=== PATIENT | male | born 1955 | race African-American/Black ===

== ENCOUNTER 2018-12-04 00:14 | Emergency (ER) | payer OTHER, MEDICAID ==
[~2018-12-04] VITALS: Ht 185.4 cm; Wt 90.7 kg
--- NOTE | 2018-12-04 00:21 | Emergency Room Report ---
History of Present Illness General Chief Complaint: Seizure Source: EMS Present Illness HPI [facility] as this patient had a witnessed seizure. It' s unknown whether he has a history of seizures in the past or what medications he is taking at this time. Also unknown whether he's abused drugs or alcohol. There is no head trauma during this. Last seizure was a year ago. Never started on medication. Patient is unable to answer questions as he is postictal. Further history will be obtained. Allergies: Coded Allergies: No Known Allergies (Unverified , 12/04/18) Patient History Limited by: medical condition Past Medical History: see triage record Past Surgical History: other - TA with R eye loss and L chest and back trauma Social History: Denies: smoking, alcohol use, drug use Social History Narrative [facility] Reviewed Nursing Documentation: PMH: Agreed; PSxH: Agreed Nursing Documentation-PMH Hx Neurological Problems: Yes - seizure Review of Systems All Other Systems: limited Physical Exam Vital Signs Date Time Temp Pulse Resp B/P (MAP) Pulse Ox O2 Delivery O2 Flow Rate FiO2 12/04/18 00:13 102 20 98 Room Air Sp02 EP Interpretation: reviewed, normal General Appearance: well appearing, no apparent distress, GCS 15 Head: normocephalic, other - prior trauma Eyes: right eye other - glass; left eye PERRL ENT: moist mucus membranes - no lingual trauma Neck: supple Respiratory: lungs clear, normal breath sounds Cardiovascular #1: regular rate, rhythm Cardiovascular #2: 2+ radial (R) Gastrointestinal: normal inspection, normal bowel sounds, non tender, no mass, non-distended Musculoskeletal: back normal, gait/station normal, normal range of motion Neurologic: alert, oriented x3 Skin: normal inspection, warm/dry Medical Decision Making Diagnostic Impression: Primary Impression: Seizure ER Course Patient presents post seizure. It's unknown whether he has a history of this. I differential includes new-onset seizure, breakthrough seizure, withdrawal seizure, electrolyte imbalance, brain bleed amongst others. Evaluation will be with EKG, chest x-ray, CT the head and labs. The patient will receive Keppra 500 mg IV and also Ativan 1 mg. The patient will also receive IV hydration. EKG no-injury. CXR with elevated R hemidiaphragm and atelectasis L. Labs unremarkable. Patient improved. Reports prior seizures without treatment. Denies cause for withdrawal. States has chronic pain in chest and lower back from trauma. Non focal neurologic exam. CT not indicated. But needs followup with PMD/ neurologist. Patient stable for outpatient observation and treatment. Laboratory Tests Test 12/04/18 00:25 12/04/18 00:35 White Blood Count 6.4 K/UL (4.8-10.8) Red Blood Count 4.90 M/UL (4.70-6.10) Hemoglobin 14.2 G/DL (14.2-18.0) Hematocrit 41.9 % (42.0-52.0) L Mean Corpuscular Volume 86 FL (80-99) Mean Corpuscular Hemoglobin 28.9 PG (27.0-31.0) Mean Corpuscular Hemoglobin Concent 33.8 G/DL (32.0-36.0) Red Cell Distribution Width 13.0 % (11.6-14.8) Platelet Count 192 K/UL (150-450) Mean Platelet Volume 6.1 FL (6.5-10.1) L Neutrophils (%) (Auto) 82.0 % (45.0-75.0) H Lymphocytes (%) (Auto) 9.2 % (20.0-45.0) L Monocytes (%) (Auto) 6.0 % (1.0-10.0) Eosinophils (%) (Auto) 1.3 % (0.0-3.0) Basophils (%) (Auto) 1.5 % (0.0-2.0) Sodium Level 142 MMOL/L (136-145) Potassium Level 4.7 MMOL/L (3.5-5.1) Chloride Level 104 MMOL/L (98-107) Carbon Dioxide Level 27 MMOL/L (21-32) Anion Gap 11 mmol/L (5-15) Blood Urea Nitrogen 16 mg/dL (7-18) Creatinine 1.2 MG/DL (0.55-1.30) Estimate Glomerular Filtration Rate > 60 mL/min (>60) Glucose Level 126 MG/DL (74-106) H Calcium Level 8.9 MG/DL (8.5-10.1) Total Bilirubin 0.5 MG/DL (0.2-1.0) Aspartate Amino Transferase (AST) 17 U/L (15-37) Alanine Aminotransferase (ALT) 18 U/L (12-78) Alkaline Phosphatase 55 U/L (46-116) Total Creatine Kinase 126 U/L (26-308) Troponin I 0.000 ng/mL (0.000-0.056) Total Protein 7.3 G/DL (6.4-8.2) Albumin 4.1 G/DL (3.4-5.0) Globulin 3.2 g/dL Albumin/Globulin Ratio 1.3 (1.0-2.7) Acetaminophen Level < 2 MCG/ML (10-30) L Phenytoin (Dilantin) Level < 0.5 ug/mL (10-20) L Valproic Acid Level < 3 MCG/ML (50-100) L Phenobarbital Level < 1.0 ug/mL (15-40) L Serum Alcohol < 3 mg/dL Urine Color Pale yellow Urine Appearance Clear Urine pH 5 (4.5-8.0) Urine Specific [place] 1.025 (1.005-1.035) Urine Protein 3+ (NEGATIVE) H Urine Glucose (UA) Negative (NEGATIVE) Urine Ketones 1+ (NEGATIVE) H Urine Blood 3+ (NEGATIVE) H Urine Nitrite Negative (NEGATIVE) Urine Bilirubin Negative (NEGATIVE) Urine Urobilinogen Normal MG/DL (0.0-1.0) Urine Leukocyte Esterase Negative (NEGATIVE) Urine RBC 10-15 /HPF (0 - 0) H Urine WBC 0-2 /HPF (0 - 0) Urine Squamous Epithelial Cells Occasional /LPF Urine Bacteria Occasional /HPF (NONE) Urine Mucus Moderate /LPF (NONE/OCC) H Urine Opiates Screen Negative (NEGATIVE) Urine Barbiturates Screen Negative (NEGATIVE) Phencyclidine (PCP) Screen Negative (NEGATIVE) Urine Amphetamines Screen Negative (NEGATIVE) Urine Benzodiazepines Screen Negative (NEGATIVE) Urine Cocaine Screen Negative (NEGATIVE) Urine Marijuana (THC) Screen Positive (NEGATIVE) H EKG Diagnostic Results Rate: normal Rhythm: NSR ST Segments: no acute changes Rhythm Strip Diag. Results EP Interpretation: yes Rhythm: NSR, no PVC's, no ectopy Chest X-Ray Diagnostic Results Chest X-Ray Diagnostic Results : Chest X-Ray Ordered: Yes # of Views/Limited/Complete: 1 View Indication: Other EP Interpretation: Yes Interpretation: no effusion, other - elevated L hemidiaphragm, atelectasis Impression: Other Electronically Signed by: Electronically signed by Marquis Vergara MD Last Vital Signs Date Time Temp Pulse Resp B/P (MAP) Pulse Ox O2 Delivery O2 Flow Rate FiO2 12/04/18 09:54 98.6 85 21 132/75 99 Room Air Status: improved Disposition: HOME, SELF-CARE Condition: Improved Scripts Levetiracetam (KEPPRA) 500 Mg Tablet 500 MG ORAL EVERY 12 HOURS, #60 TAB 0 Refills Prov: Marquis Vergara MD 12/04/18 Marquis Vergara MD December 04, 2018 00:21
[2018-12-04] MEDS ORDERED: LORazepam Inj 2mg/ml 1ml IV ONE (00:30)
[2018-12-04] MEDS ORDERED: levETIRAcetam 500 MG in D5W 110 ML IV ONE (00:30)
--- NOTE | 2018-12-04 00:40 | NUR ---
ER Nurse Note: Pt BIBA 28 from a half home c/o seizure. Per EMS, the facility called 911 for an unwitnessed seizure that was reported by his roommate. Pt a&ox2 to name and date. Pt denies taking meds, denies pain, denies shortness of breath, chills, n/v. Pt is does not have seizure. Skin intact; has bumps all over body, said he had it since he was a child. ERMD at pt side; will continue to [facility].
[2018-12-04 00:49] LABS: APPEARANCE,URINE CLEAR; BILIRUBIN, URINE NEGATIVE (NEGATIVE); COLOR,URINE PALE YELLOW; GLUCOSE, URINE (UA) NEGATIVE (NEGATIVE); KETONES,URINE 1+ (NEGATIVE); LEUKOCYTE ESTERASE ,URINE NEGATIVE (NEGATIVE); NITRITE,URINE NEGATIVE (NEGATIVE); PH,URINE 5 (4.5-8.0); PROTEIN,URINE 3+ (NEGATIVE); UROBILINOGEN,URINE NORMAL MG/DL (0.0-1.0)
[2018-12-04 00:50] LABS: BASOPHILS % (AUTO) 1.5 % (0.0-2.0); EOSINOPHILS % (AUTO) 1.3 % (0.0-3.0); HEMATOCRIT 41.9 % (42.0-52.0); HEMOGLOBIN 14.2 G/DL (14.2-18.0); LYMPHOCYTES % (AUTO) 9.2 % (20.0-45.0); MEAN CORPUSCULAR VOLUME 86 FL (80-99); PLATELET COUNT 192 K/UL (150-450); WHITE BLOOD COUNT 6.4 K/UL (4.8-10.8)
[2018-12-04 01:14] LABS: ANION GAP 11 mmol/L (5-15); BLOOD UREA NITROGEN 16 mg/dL (7-18); CALCIUM 8.9 MG/DL (8.5-10.1); CARBON DIOXIDE 27 MMOL/L (21-32); CHLORIDE 104 MMOL/L (98-107); CREATININE 1.2 MG/DL (0.55-1.30); POTASSIUM 4.7 MMOL/L (3.5-5.1); SODIUM 142 MMOL/L (136-145)
[2018-12-04 01:19] LABS: ALANINE AMINOTRANSFERASE 18 U/L (12-78); ALBUMIN 4.1 G/DL (3.4-5.0); ALBUMIN/GLOBULIN RATIO 1.3 (1.0-2.7); ALKALINE PHOSPHATASE 55 U/L (46-116); ASPARTATE AMINO TRANSFERASE 17 U/L (15-37); BILIRUBIN,TOTAL 0.5 MG/DL (0.2-1.0); CREATINE KINASE 126 U/L (26-308)
[2018-12-04 01:40] VITALS: BP 142/80
[2018-12-04] MEDS ORDERED: KEPPRA500 M4 ORAL (02:35)
[2018-12-04 02:40] VITALS: BP 138/75
--- NOTE | 2018-12-04 03:22 | NUR ---
ER Nurse Note: Pt ready for discharge. Pt a&ox3, VSS, no signs of distress. Awaiting transportation. IV discontinued; site clean and bandaged. All safety measures met; will continue to [facility].
[2018-12-04 06:55] VITALS: BP 134/74
--- NOTE | 2018-12-04 06:59 | NUR ---
ER Nurse Note: Pt a&ox3/4, VSS, no signs of distress. Pt is calm and comfortable. Placement was called to his [facility] but facility does not open until 0800 and does not picking crew supervisor phone (details in calls). imaging assistant is contacting family member but family cannot picking crew supervisor ANNMARIE due to personal reasons. Pt is medically cleared for discharge; pending placement. Will endorse to oncoming shift for continuity of care.
--- NOTE | 2018-12-04 07:26 | NUR ---
ED Nurse Note: Report received from ROSENDO Broderick. Pt awake and alert at this time. No complaint of pain. No sign of acute distress. Will cont to monitor.
[2018-12-04 08:49] VITALS: BP 136/79
[2018-12-04 09:32] VITALS: BP 132/75
--- NOTE | 2018-12-04 09:53 | NUR ---
ED Nurse Note: Ambulance personels at bedside for transportation. No sign of acute distress.
[2018-12-04 09:54] VITALS: BP 132/75
--- NOTE | 2018-12-04 11:44 | Diagnostic Imaging Report ---
Indication: Dyspnea Comparison: None A single view chest radiograph was obtained. Findings: There is marked elevation of the left hemidiaphragm. Atelectasis at the left lung base is likely compressive an seen is linear densities. There is suggestion of mild interstitial edema and vascular prominence. Please correlate clinically. IMPRESSION: Possible mild CHF. Correlate clinically. Compressive atelectasis left lung base with marked elevation of the left hemidiaphragm
--- NOTE | 2018-12-07 19:43 | Cardiology Report ---
APPROVED REPORT EKG Measurement Heart [id number] Normal sinus rhythm Normal ECG
== END 2018-12-04 10:00 | disposition home or self-care (01) ==
LOC: EDBD 00:14 → EMR 00:30
DX: G40.909 Epilepsy, unspecified, not intractable, without status epilepticus (principal); G89.29 Other chronic pain
CPT/HCPCS: 36415; 71045; 80053; 80164; 80184; 80185; 80307; 81003; 82550; 84484; 85025; 93005; 96361; 96374; 96375; 99284; G0480; J1953; 80329